=== PATIENT | female | born 1950 | race Caucasian/White ===

== ENCOUNTER 2018-10-03 10:28 | Emergency (ER) | payer MEDICARE ==
[~2018-10-03] VITALS: Ht 160 cm; Wt 134.5 kg
[~2018-10-03 10:28] MED LIST: ACTOS 45 MG45 M2 PO; ALBUTEROL SULF8.5 GM IH; AVAPRO 150 MG150 M1 PO; CARVEDILOL6.25 MG PO; COREG6.25 MG PO; GEMFIBROZIL 60600 MG PO; GLUCOPHAGE1000 MG PO; GLUMETZA1000 PO; LASIX 40 MG TAB40 M1 PO; LEVOTHYROXIN0.175 MG PO; NEXIUM40 MG PO; POTASSIUM20 PO; PROAIR HFA8.5 GM INH; PROZAC20 MG PO; PROZAC40 MG PO; SYNTHROID175 MCG PO
[2018-10-03] MEDS ORDERED: LASIX 20 MG TAB20 MG PO ×2 (11:04→15:31)
[2018-10-03] MEDS ORDERED: IRBESARTAN75 MG PO (11:05)
[2018-10-03 11:54] LABS: HEMATOCRIT 31.3 % (37.0-47.0); HEMOGLOBIN 9.8 gm/dL (12.0-15.0); MCH 26.1 pg (26.0-34.0); MCHC 31.3 g/dL (28.0-37.0); MCV 83.3 fL (80.0-100.0); MPV 9.4 fl. (7.2-11.1); NUCLEATED RBCS 0 /100WBC; PLATELET COUNT* 242 thou/uL (150-400); RBC 3.76 mil/uL (4.20-5.00); RDW-CV 18.9 % (10.5-14.5); WBC 5.4 thou/uL (4.0-11.0)
[2018-10-03 12:09] LABS: ALBUMIN 3.5 g/dL (3.4-5.0); ALKALINE PHOSPHATASE 64 U/L (46-116); ANION GAP 8 mmol/L (7-16); BUN 31 mg/dL (7-18); CALCIUM 8.7 mg/dL (8.5-10.1); CHLORIDE 104 mmol/L (98-107); CO2 28 mmol/L (21-32); CREATININE 1.3 mg/dL (0.6-1.3); GLUCOSE 148 mg/dL (70-99); LIPASE 199 U/L (73-393); NT-PRO BRAIN NAT PEPTIDE 1476 pg/mL (<300); POTASSIUM 4.2 mmol/L (3.5-5.1); SGOT 16 U/L (15-37); SGPT 9 U/L (30-65); SODIUM 140 mmol/L (136-145); TOTAL BILIRUBIN 0.5 mg/dL (<0.1-1.0); TOTAL PROTEIN 6.7 g/dL (6.4-8.2); TROPONIN-I LEVEL <0.06 ng/mL (<0.06)
[2018-10-03 12:22] LABS: INR 1.2; PROTIME 12.2 Seconds (9.20-11.50)
[2018-10-03 12:54] LABS: ABSOLUTE EOSINOPHILS 0.1 thou/uL (0.0-0.7); ABSOLUTE LYMPHOCYTES 0.2 thou/uL (0.8-5.3); ABSOLUTE MONOCYTES 0.5 thou/uL (0.0-1.2); ABSOLUTE NEUTROPHILS 4.6 thou/uL (1.6-8.1)
[2018-10-03 12:55] LABS: HYPOCHROMASIA 1+; PLATELET ESTIMATE ADEQUATE
[2018-10-03 12:56] LABS: MICROCYTES 1+
--- NOTE | 2018-10-03 14:26 | EKG ---
[place] [address] ELECTROCARDIOGRAM REPORT Name: RIZWAN ANAYA Room: [facility]#: [id number] Admission: 10/03/18 Attend Phys: Discharge: Date of : 48 Report #: [id number] THIS REPORT FOR: //name// [facility] Test Date: 2018-10-03 Test Time: 11:25:10 Pat Name: RIZWAN ANAYA Department: Room: Gender: F Telephone Lines Repairer: [facility] : 1950 Requested By: Jack Tariq Order Number: [id number] MD: Amadeo Joaquin Measurements Intervals [place] Rate: 103 P: 101 OR: 199 QRS: -79 QRSD: 122 T: 91 QT: 386 QTc: 506 Interpretive Statements Sinus tachycardia Nonspecific IVCD with LAD Consider anterior infarct Compared to ECG 10/24/2013 15:58:08 Intraventricular conduction delay now present Sinus rhythm no longer present First degree AV block no longer present Electronically Signed On 10-03-2018 14:26:34 DISINTEGRATOR by Amadeo Joaquin [email or web address] <ELECTRONICALLY SIGNED> By: Amadeo Joaquin MD, [facility] 10/03/18 1426 1125 1125 Amadeo Joaquin MD, [facility] /EPI
[2018-10-03 15:53] VITALS: BP 120/69
--- NOTE | 2018-10-05 13:14 | CON ---
[address] [address] CONSULTATION Name: RIZWAN ANAYA Room: [facility]#: [id number] Admission: 10/03/18 Attend Phys: Discharge: 10/03/18 Date of : 48 Report #: [id number] THIS REPORT FOR: //name// CC: Lois Workman CARDIOLOGY CONSULTATION INDICATION: Dyspnea. HISTORY OF PRESENT ILLNESS: The patient is a very pleasant 68-year-old white female, who is well known to myself. She has a history of chronic diastolic heart failure. Cardiac risk factors include hypertension, dyslipidemia, and type 2 diabetes mellitus. She presented to the Emergency Room complaining of increasing dyspnea. She denied orthopnea. She was not having chest pain. She was without palpitations. She had no other complaint. V/Q scan in the Emergency Room was unremarkable. Labs were significant only for some moderate anemia with normal MCV. Her troponins were unremarkable. NT-proBNP was minimally elevated. PAST MEDICAL HISTORY: 1. Chronic diastolic heart failure. 2. Hypertension. 3. Mixed hyperlipidemia. 4. Type 2 diabetes mellitus. 5. GERD. PAST SURGICAL HISTORY: 1. x 2. 2. Breast reduction surgery remotely. FAMILY HISTORY: The patient's father of lung cancer. The patient's mother of a CVA. The patient has maternal uncle, who of heart disease in his 30s. SOCIAL HISTORY: The patient is . She does not smoke. She does not drink alcohol. 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 ALLERGIES: SULFA, IBUPROFEN, NAPROSYN, AND CEPHALEXIN. HOME MEDICATIONS: Carvedilol 6.25 mg p.o. b.i.d., omeprazole 40 mg p.o. daily, furosemide 20 mg daily, gemfibrozil 600 mg b.i.d., irbesartan 75 mg daily, levothyroxine 0.175 mg daily, Glucophage 1000 mg b.i.d., Actos 45 mg daily, [place] [address] CONSULTATION Name: RIZWAN ANAYA Room: [facility]#: [id number] Admission: 10/03/18 Attend Phys: Discharge: 10/03/18 Date of : 48 Report #: [id number] potassium chloride 20 mEq daily. PHYSICAL EXAMINATION: VITAL SIGNS: Stable. Blood pressure 120/69, pulse is 106 and regular. GENERAL: This is a moderately obese, pleasant white female, in no distress. Mood and affect appropriate. HEENT: Extraocular muscles are intact. Mucous membranes are moist. NECK: Shows no jugular venous distention. No carotid bruits. CHEST: Reveals clear lung campbell without wheezes, rales, or rhonchi. CARDIOVASCULAR: Reveals a regular rhythm with normal S1 and S2. I do not appreciate gallop or murmur. ABDOMEN: Reveals a protuberant abdomen, soft, and nontender. EXTREMITIES: Tense edema of the lower extremities that appears to be chronic in nature. SKIN: Warm and dry. IMPRESSION AND RECOMMENDATIONS: 1. Mild acute exacerbation of chronic diastolic heart failure. I have asked the patient to increase her diuretics to a double dose for the next 2 days and then resume normal daily dose. 2. Hypertension. Blood pressure adequately controlled at present. 3. Dyslipidemia. Continue current statin agent. 4. Dyspnea, likely multifactorial. I believe she is having some mild exacerbation of chronic diastolic heart failure. Her anemia may also be contributing. She was also concerned that she has a B12 deficiency. A prescription was given for B12 injections. At this point, she appears stable for discharge from the Emergency Room. The patient is scheduled to follow up in the Cardiology office in the near future. <ELECTRONICALLY SIGNED> By: Edward Rios MD, FACC 10/05/18 1314 1722 [id number] Rios MD, FACC /nt
== END 2018-10-03 15:53 | disposition home or self-care (01) ==
LOC: M.ERS 10:28
PROVIDERS: Emergency Medicine
DX: I11.0 Hypertensive heart disease with heart failure (principal); I50.9 Heart failure, unspecified; E11.9 Type 2 diabetes mellitus without complications; Z87.891 Personal history of nicotine dependence; Z88.2 Allergy status to sulfonamides; Z88.1 Allergy status to other antibiotic agents; Z88.6 Allergy status to analgesic agent; Z88.8 Allergy status to other drugs, medicaments and biological substances; Z98.890 Other specified postprocedural states